=== PATIENT | female | born 1950 | race Caucasian/White ===

== ENCOUNTER 2018-05-28 09:39 | Inpatient (IN) | payer MEDICAID ==
[~2018-05-28] VITALS: Ht 157.5 cm; Wt 75.3 kg
[2018-05-28] MEDS ORDERED: KETOROLAC 30MG/ML VIAL IV STA (10:08)
[2018-05-28] MEDS ORDERED: FAMOTIDINE 20MG/2ML VIAL IV STA (10:08)
[2018-05-28] MEDS ORDERED: SODIUM CHLORIDE 0.9% 1,000 ML IV ONE (10:08)
[2018-05-28] MEDS ORDERED: ONDANSETRON HCL 4MG/2ML INJ IV STA (10:08)
[2018-05-28 10:43] LABS: BASOPHILS % 0.9 % (0.0-2.0); EOSINOPHILS % 1.9 % (0.0-5.0); HEMOGLOBIN. 11.3 g/dL (12.0-16.0); LYMPHOCYTES % 29.5 % (20.0-50.0); MEAN CORPUSCULAR HEMOGLOBIN 33.4 pg (28.0-32.0); MEAN CORPUSCULAR VOLUME 100.7 fL (81.0-99.0); MONOCYTES % 8.8 % (2.0-8.0); NEUTROPHILS % 58.9 % (40.0-76.0); PLATELET 166 x1000/uL (130-400); RED BLOOD CELL COUNT 3.37 mill/uL (4.2-5.4); RED CELL DISTRIBUTION WIDTH 17.6 % (11.6-14.6)
[2018-05-28 10:45] LABS: CHLORIDE 105 mEq/L (98-107)
[2018-05-28 10:47] LABS: PROTHROMBIN TIME 10.8 sec (9.6-11.0)
[2018-05-28 10:51] LABS: PHOSPHORUS 4.3 mg/dL (2.5-4.9)
[2018-05-28 12:37] LABS: CLARITY URINE CLEAR (CLEAR); COLOR URINE YELLOW (YELLOW); KETONES URINE NEGATIVE (NEGATIVE); LEUKOCYTE ESTERASE URINE NEGATIVE (NEGATIVE); NITRITE URINE NEGATIVE (NEGATIVE); OCCULT BLOOD URINE NEGATIVE (NEGATIVE); PH URINE >=9.0 (4.5-8.0); PROTEIN URINE 3+ (NEGATIVE); SPECIFIC GRAVITY URINE 1.013 (1.005-1.030); UROBILINOGEN URINE 0.2 E.U./dL (0.2-1.0)
[2018-05-28] MEDS ORDERED: IPRATROPIUM/ALBUTEROL 0.5-3(2.5)MG/3ML NEB INH PRN (13:30)
[2018-05-28] MEDS ORDERED: DOCUSATE SODIUM 100MG CAPSULE PO PRN (13:30)
[2018-05-28] MEDS ORDERED: CLONIDINE 0.1MG TABLET PO PRN (13:30)
[2018-05-28] MEDS ORDERED: LORAZEPAM 0.5MG TABLET PO PRN (13:30)
[2018-05-28] MEDS ORDERED: ACETAMINOPHEN 325MG TABLET PO PRN (13:30)
[2018-05-28] MEDS ORDERED: ONDANSETRON HCL 4MG/2ML INJ IV PRN (13:30)
[2018-05-28 14:15] LABS: *BARBITURATES SCREEN URINE NEGATIVE (NEGATIVE); *BENZODIAZEPINES SCREEN URINE NEGATIVE (NEGATIVE); *COCAINE SCREEN URINE NEGATIVE (NEGATIVE); METHADONE URINE SCREEN NEGATIVE (NEGATIVE); OPIATES URINE SCREEN NEGATIVE (NEGATIVE); PHENCYCLIDINE URINE SCREEN NEGATIVE (NEGATIVE)
[2018-05-28 14:16] LABS: *AMPHETAMINES SCREEN URINE NEGATIVE (NEGATIVE); CANNABINOID URINE SCREEN NEGATIVE (NEGATIVE)
[2018-05-28] MEDS: HYDROCODONE/ACETAMINOPHEN 5/325MG TABLET PO PRN ×2 (16:40→18:31)
[2018-05-28] MEDS: PSYLLIUM SEED PACKET PO SCH (16:47)
[2018-05-28 16:53] VITALS: BP 140/56
[2018-05-28 17:03] VITALS: BP 140/56
[2018-05-28] MEDS ORDERED: LISI-604 MT (18:52)
[2018-05-28] MEDS ORDERED: DIPH1TAB24 MT ×2 (18:52→19:00)
[2018-05-28] MEDS ORDERED: OMEP20CA10 MT (18:52)
[2018-05-28] MEDS ORDERED: ASPI-1159 MT (18:52)
[2018-05-28] MEDS ORDERED: APIX2.5T MT (19:00)
[2018-05-28] MEDS ORDERED: FOLI0.8T23 MT (19:00)
[2018-05-28] MEDS ORDERED: CALC-1042 MT (19:00)
[2018-05-28] MEDS ORDERED: CALC667T5 MT (19:00)
[2018-05-28] MEDS ORDERED: GABA-529 MT (19:00)
[2018-05-28] MEDS ORDERED: METO-539 PO (19:02)
[2018-05-28] MEDS ORDERED: DEXTROSE 50% WATER 50ML SYRINGE IV PRN (19:15)
[2018-05-28 20:00] VITALS: BP 99/47
[2018-05-28] MEDS: INSULIN LISPRO 100 UNITS/ML SUBCUT SCH (21:00)
[2018-05-28] MEDS: BLOOD SUGAR DIAGNOSTIC STRIP TEST SCH (21:07)
[2018-05-28] MEDS: OMEPRAZOLE 20MG CAPSULE EXTENDED RELEASE PO SCH (21:50)
[2018-05-28] MEDS: GABAPENTIN 100MG CAPSULE PO SCH (21:50)
[2018-05-29] VITALS: BP 162/69
[2018-05-29 04:00] VITALS: BP 115/64
[2018-05-29] MEDS: GABAPENTIN 100MG CAPSULE PO SCH ×3 (06:16→21:50)
[2018-05-29] MEDS: BLOOD SUGAR DIAGNOSTIC STRIP TEST SCH ×4 (06:16→21:00)
[2018-05-29 07:11] LABS: BASOPHILS % 0.9 % (0.0-2.0); EOSINOPHILS % 1.9 % (0.0-5.0); HEMATOCRIT. 34.3 % (36.0-48.0); HEMOGLOBIN. 11.3 g/dL (12.0-16.0); LYMPHOCYTES % 40.7 % (20.0-50.0); MEAN CORPUSCULAR HEMOGLOBIN 33.1 pg (28.0-32.0); MEAN CORPUSCULAR VOLUME 100.5 fL (81.0-99.0); MEAN PLATELET VOLUME 8.9 fl (7.4-10.4); MONOCYTES % 11.7 % (2.0-8.0); NEUTROPHILS % 44.8 % (40.0-76.0); PLATELET 165 x1000/uL (130-400); RED BLOOD CELL COUNT 3.41 mill/uL (4.2-5.4); RED CELL DISTRIBUTION WIDTH 18.2 % (11.6-14.6)
[2018-05-29] MEDS: INSULIN LISPRO 100 UNITS/ML SUBCUT SCH ×4 (07:36→21:00)
[2018-05-29 08:00] VITALS: BP 117/70
[2018-05-29 08:23] LABS: PHOSPHORUS 4.6 mg/dL (2.5-4.9)
[2018-05-29] MEDS: OMEPRAZOLE 20MG CAPSULE EXTENDED RELEASE PO SCH (09:31)
[2018-05-29] MEDS: PSYLLIUM SEED PACKET PO SCH ×3 (09:32→17:51)
[2018-05-29] MEDS: METOPROLOL TARTRATE 25MG TABLET PO SCH ×2 (09:32→21:51)
[2018-05-29 10:04] LABS: VITAMIN B12 SERUM 566 pg/mL (211-911)
[2018-05-29 10:17] LABS: FOLIC ACID (FOLATE) SERUM > 20.00 ng/mL (>5.38)
[2018-05-29 11:32] LABS: FERRITIN 1087 ng/mL (10-291)
[2018-05-29 12:00] VITALS: BP 130/68
[2018-05-29 16:00] VITALS: BP 148/65
[2018-05-29 19:57] VITALS: BP 137/51
[2018-05-30] VITALS: BP 142/56
[2018-05-30 04:00] VITALS: BP 153/61
[2018-05-30] MEDS: GABAPENTIN 100MG CAPSULE PO SCH ×3 (06:30→21:31)
[2018-05-30] MEDS: BLOOD SUGAR DIAGNOSTIC STRIP TEST SCH ×4 (06:35→21:00)
[2018-05-30] MEDS: INSULIN LISPRO 100 UNITS/ML SUBCUT SCH ×4 (07:50→21:00)
[2018-05-30 08:12] LABS: BASOPHILS % 0.8 % (0.0-2.0); EOSINOPHILS % 2.9 % (0.0-5.0); HEMATOCRIT. 32.5 % (36.0-48.0); LYMPHOCYTES % 29.2 % (20.0-50.0); MEAN CORPUSCULAR HEMOGLOBIN 33.8 pg (28.0-32.0); MEAN CORPUSCULAR VOLUME 100.1 fL (81.0-99.0); MEAN PLATELET VOLUME 8.4 fl (7.4-10.4); MONOCYTES % 12.3 % (2.0-8.0); NEUTROPHILS % 54.8 % (40.0-76.0); PLATELET 164 x1000/uL (130-400); RED BLOOD CELL COUNT 3.24 mill/uL (4.2-5.4); RED CELL DISTRIBUTION WIDTH 17.6 % (11.6-14.6)
[2018-05-30 08:14] VITALS: BP 125/72
[2018-05-30] MEDS: OMEPRAZOLE 20MG CAPSULE EXTENDED RELEASE PO SCH (08:23)
[2018-05-30] MEDS: METOPROLOL TARTRATE 25MG TABLET PO SCH ×2 (08:23→21:33)
[2018-05-30] MEDS: PSYLLIUM SEED PACKET PO SCH ×3 (08:24→17:00)
[2018-05-30 09:02] LABS: PHOSPHORUS 4.5 mg/dL (2.5-4.9)
[2018-05-30 11:51] VITALS: BP 138/50
[2018-05-30 15:45] VITALS: BP 150/45
[2018-05-30] MEDS ORDERED: SUCRALFATE 1 G/10 ML UDC PO SCH (17:20)
[2018-05-30] MEDS: SIMETHICONE 80MG TABLET CHEW PO SCH ×3 (17:47→21:32)
[2018-05-30 20:06] VITALS: BP 149/48
[2018-05-31] VITALS (8 sets, daily range): BP systolic 110–170; BP diastolic 52–78
[2018-05-31] MEDS: BLOOD SUGAR DIAGNOSTIC STRIP TEST SCH ×4 (06:22→21:47)
[2018-05-31] MEDS: GABAPENTIN 100MG CAPSULE PO SCH ×3 (06:23→21:52)
[2018-05-31 06:27] LABS: HEMATOCRIT. 31.4 % (36.0-48.0); HEMOGLOBIN. 10.5 g/dL (12.0-16.0); MEAN CORPUSCULAR VOLUME 99.3 fL (81.0-99.0); MEAN PLATELET VOLUME 8.3 fl (7.4-10.4); PLATELET 149 x1000/uL (130-400); RED BLOOD CELL COUNT 3.17 mill/uL (4.2-5.4); RED CELL DISTRIBUTION WIDTH 17.2 % (11.6-14.6)
[2018-05-31] MEDS: INSULIN LISPRO 100 UNITS/ML SUBCUT SCH ×4 (07:50→21:00)
[2018-05-31 08:38] LABS: PHOSPHORUS 5.4 mg/dL (2.5-4.9)
[2018-05-31] MEDS: METOPROLOL TARTRATE 25MG TABLET PO SCH ×2 (09:00→21:00)
[2018-05-31] MEDS: SIMETHICONE 80MG TABLET CHEW PO SCH ×4 (10:19→21:52)
[2018-05-31] MEDS: PSYLLIUM SEED PACKET PO SCH ×3 (10:19→18:30)
[2018-05-31] MEDS: OMEPRAZOLE 20MG CAPSULE EXTENDED RELEASE PO SCH (10:19)
[2018-05-31 13:21] LABS: PLATELET ESTIMATE NORMAL
== END 2018-05-31 23:40 | disposition home or self-care (01) | DRG 249 ==
LOC: ER 09:39 → 6WST 11:41 → EDBEDREQ 11:44 → ENRESERV 13:40
PROVIDERS: ADMIT Internal Medicine; ATTEND Internal Medicine
PROC: 5A1D70Z Performance of Urinary Filtration, Intermittent, Less than 6 Hours Per Day (ICD-10-PCS; principal; 2018-05-28)
PROC: 5A1D70Z Performance of Urinary Filtration, Intermittent, Less than 6 Hours Per Day (ICD-10-PCS; 2018-05-31)
DX: A08.4 Viral intestinal infection, unspecified (principal); E44.0 Moderate protein-calorie malnutrition; E11.22 Type 2 diabetes mellitus with diabetic chronic kidney disease; I12.0 Hypertensive chronic kidney disease with stage 5 chronic kidney disease or end stage renal disease; I48.91 Unspecified atrial fibrillation; E87.5 Hyperkalemia; N25.81 Secondary hyperparathyroidism of renal origin; D53.9 Nutritional anemia, unspecified; K92.1 Melena; K21.9 Gastro-esophageal reflux disease without esophagitis; E78.5 Hyperlipidemia, unspecified; I16.0 Hypertensive urgency; N18.6 End stage renal disease; K44.9 Diaphragmatic hernia without obstruction or gangrene; R82.71 Bacteriuria; Z99.2 Dependence on renal dialysis; Z79.4 Long term (current) use of insulin; Z82.49 Family history of ischemic heart disease and other diseases of the circulatory system; Z83.3 Family history of diabetes mellitus; Z90.49 Acquired absence of other specified parts of digestive tract; Z79.82 Long term (current) use of aspirin; Z68.30 Body mass index [BMI] 30.0-30.9, adult; Z88.5 Allergy status to narcotic agent; T50.995A Adverse effect of other drugs, medicaments and biological substances, initial encounter
CPT/HCPCS: 36415; 71045; 74176; 80048; 80061; 80305; 82270; 82607; 82728; 82746; 82962; 83036; 83540; 83550; 83735; 84100; 84443; 84484; 87493; 87804; 93005; 96361; 96374; 96375; 99285; J1815; J1885; J2405; J3490; J7030